=== PATIENT | female | born 1970 | race Asian ===

== ENCOUNTER 2018-11-27 01:01 | Emergency (ER) | payer BC, OTHER, SELFPAY ==
[~2018-11-27] VITALS: Ht 152.4 cm; Wt 63.5 kg
[2018-11-27 01:04] VITALS: BP 169/82
== END 2018-11-27 02:05 | disposition home or self-care (01) ==
LOC: ED 02:00
DX: N39.0 Urinary tract infection, site not specified (principal); E11.9 Type 2 diabetes mellitus without complications; E78.5 Hyperlipidemia, unspecified; I10 Essential (primary) hypertension; Z90.710 Acquired absence of both cervix and uterus
CPT/HCPCS: 81001; 87077; 87086; 87186; 96372; 99283; J0696